=== PATIENT | male | born 1935 | race African-American/Black ===

== ENCOUNTER 2018-11-05 10:54 | Emergency (ER) | payer OTHER ==
[~2018-11-05] VITALS: Ht 170.2 cm; Wt 58.5 kg
[2018-11-05 12:04] LABS: Urine Bacteria NONE SEEN /hpf (None Seen); Urine Blood 2+ /uL (Negative); Urine Specific Gravity 1.008 (1.001-1.035); Urine WBC 1 /hpf (0 - 3)
[2018-11-05 12:19] LABS: Basophils # (auto) 0 uL; Basophils % (auto) 0.4 % (0.0-2.0); Eosinophils # (auto) 0 uL; Eosinophils % (auto) 0.1 % (0.0-7.0); Hematocrit 45.8 % (41.0-53.0); Hemoglobin 15.4 g/dL (13.5-17.5); Lymphocytes # (auto) 0.7 uL; Lymphocytes % (auto) 10.8 % (10.0-50.0); Mean Corpuscular Hemoglobin 29.6 pg (28.0-32.0); Mean Corpuscular Hgb Conc. 33.5 g/dL (32.0-36.0); Mean Corpuscular Volume 88.4 fL (80.0-100.0); Monocytes # (auto) 0.4 uL; Monocytes % (auto) 5.8 % (0.0-12.0); Neutrophils # (auto) 5.6 uL; Neutrophils % (auto) 82.9 % (37.0-80.0); Nucleated Red Blood Cells % 0.9 %; Platelet Count (auto) 397 10^3/uL (140-450); Red Blood Cells 5.19 10^6/uL (4.5-5.90); Red Cell Distribution Width 14.2 % (11.8-14.3); White Blood Cell 6.7 10^3/uL (4.4-10.8)
[2018-11-05 12:45] LABS: Albumin 3.8 g/dL (3.4-5.0); Calcium 9.1 mg/dL (8.5-10.1)
[2018-11-05 12:46] LABS: INR 0.99 (0.9-1.15); Prothrombin Time 10.7 sec (9.06-12.60)
[2018-11-05 12:50] LABS: BUN/Creatinine Ratio 11.5; Bilirubin, Total 0.8 mg/dL (0.2-1.0)
[2018-11-05 15:22] VITALS: BP 147/76
== END 2018-11-05 15:22 | disposition home or self-care (01) ==
LOC: ER 11:01
DX: R33.9 Retention of urine, unspecified (principal); I10 Essential (primary) hypertension
CPT/HCPCS: 36415; 51702; 80053; 81001; 85025; 85610

== ENCOUNTER → 2019-08-14 | Emergency (ER) | payer OTHER ==
[~2019-08-14] VITALS: Ht 177.8 cm; Wt 59.9 kg
[~2019-08-14] MED LIST: ASPI81CH43 PO; ATOR10TA PO; HCTZ25T PO; NOREPINEPHRINE 8 MG/250ML KIT 250 ML IV SCH; TAM04C PO; cloNIDine HCL 0.1 MG TAB PO ONE
[2019-08-14 07:13] LABS: Urine Bacteria MANY /hpf (None Seen); Urine Blood 2+ /uL (Negative); Urine Specific Gravity 1.012 (1.001-1.035); Urine WBC 70 /hpf (0 - 3); Urine WBC Clumps PRESENT /hpf (None Seen)
[2019-08-14 08:43] VITALS: BP 167/101
== END | disposition home or self-care (01) ==
LOC: EDBD 02:08 → EDUNIT# 02:08 → ER 02:20
DX: R33.9 Retention of urine, unspecified (principal); N39.0 Urinary tract infection, site not specified; I10 Essential (primary) hypertension; E11.9 Type 2 diabetes mellitus without complications; E78.5 Hyperlipidemia, unspecified; F17.210 Nicotine dependence, cigarettes, uncomplicated; Z79.82 Long term (current) use of aspirin; Z79.899 Other long term (current) drug therapy
CPT/HCPCS: 51702; 81001; 93005

== ENCOUNTER 2019-10-29 10:45 | Inpatient (IN) | payer OTHER ==
[~2019-10-29] VITALS: Ht 170.2 cm; Wt 56.0 kg
[~2019-10-29 10:45] MED LIST changes: -NOREPINEPHRINE 8 MG/250ML KIT 250 ML IV SCH; -cloNIDine HCL 0.1 MG TAB PO ONE
[2019-10-29 11:04] LABS: Basophils # (auto) 0 10 ^3/uL (0-0.2); Basophils % (auto) 0.2 % (0.0-2.0); Eosinophils # (auto) 0 10 ^3/uL (0-0.8); Eosinophils % (auto) 0.1 % (0.0-7.0); Hematocrit 42.1 % (41.0-53.0); Hemoglobin 13.8 g/dL (13.5-17.5); Lymphocytes % (auto) 7.5 % (10.0-50.0); Mean Corpuscular Hemoglobin 28.8 pg (28.0-32.0); Mean Corpuscular Hgb Conc. 32.8 g/dL (32.0-36.0); Mean Corpuscular Volume 87.7 fL (80.0-100.0); Monocytes % (auto) 7.4 % (0.0-12.0); Neutrophils # (auto) 10.9 10 ^3/uL (1.6-8.6); Neutrophils % (auto) 84.8 % (37.0-80.0); Nucleated Red Blood Cells % 0.1 %; Platelet Count (auto) 188 10^3/uL (140-450); Red Cell Distribution Width 15.6 % (11.8-14.3); White Blood Cell 12.9 10^3/uL (4.4-10.8)
[2019-10-29 11:21] LABS: Albumin 3.3 g/dL (3.4-5.0); Calcium 8.6 mg/dL (8.5-10.1); Potassium 3.4 mmol/L (3.5-5.1)
[2019-10-29 11:24] LABS: BUN/Creatinine Ratio 15.4; Total Protein 7.8 g/dL (6.4-8.2)
[2019-10-29 11:59] LABS: Urine Bacteria MOD /hpf (None Seen); Urine Blood 2+ /uL (Negative); Urine Specific Gravity 1.014 (1.001-1.035); Urine WBC 423 /hpf (0 - 3); Urine WBC Clumps PRESENT /hpf (None Seen)
[2019-10-29] MEDS ORDERED: MORPHINE SULF INJ 2 MG/ML SYRINGE 1ML IV PRN ×2 (13:15)
[2019-10-29] MEDS ORDERED: NITROGLYCERIN 0.4 MG SL TAB SL PRN (13:15)
[2019-10-29] MEDS ORDERED: HYDROcodone-ACET 5/325MG TAB PO PRN (13:15)
[2019-10-29] MEDS ORDERED: ACETAMINOPHEN 500 MG TAB PO PRN (13:15)
[2019-10-29] MEDS ORDERED: ONDANSETRON HCL 4 MG/2 ML VIAL IV PRN (13:15)
[2019-10-29] MEDS ORDERED: cefTRIAXone 1GM/50ML D5W 50 ML IV ONE (13:15)
[2019-10-29] MEDS: SODIUM CHLORIDE 0.9% 1,000 ML IV SCH ×2 (13:30→23:06)
[2019-10-29 18:14] VITALS: BP 172/84
[2019-10-29 18:37] VITALS: BP 172/84
[2019-10-29] MEDS ORDERED: LISI10TA6 PO (19:57)
[2019-10-29] MEDS: DOCUSATE SOD 100 MG CAP PO SCH (21:47)
[2019-10-30 05:19] VITALS: BP 155/85
[2019-10-30 06:14] LABS: Basophils # (auto) 0 10 ^3/uL (0-0.2); Basophils % (auto) 0.3 % (0.0-2.0); Eosinophils # (auto) 0.1 10 ^3/uL (0-0.8); Eosinophils % (auto) 1.2 % (0.0-7.0); Hematocrit 38.1 % (41.0-53.0); Hemoglobin 12.8 g/dL (13.5-17.5); Lymphocytes # (auto) 1.4 10 ^3/uL (0.4-5.4); Lymphocytes % (auto) 11.4 % (10.0-50.0); Mean Corpuscular Hemoglobin 29.2 pg (28.0-32.0); Mean Corpuscular Hgb Conc. 33.5 g/dL (32.0-36.0); Mean Corpuscular Volume 87.2 fL (80.0-100.0); Monocytes # (auto) 1.1 10 ^3/uL (0-1.3); Neutrophils # (auto) 9.6 10 ^3/uL (1.6-8.6); Neutrophils % (auto) 78.1 % (37.0-80.0); Nucleated Red Blood Cells % 0.1 %; Platelet Count (auto) 171 10^3/uL (140-450); Red Blood Cells 4.37 10^6/uL (4.5-5.90); Red Cell Distribution Width 15.2 % (11.8-14.3); White Blood Cell 12.2 10^3/uL (4.4-10.8)
[2019-10-30 06:35] LABS: Potassium 3.7 mmol/L (3.5-5.1)
[2019-10-30 06:45] LABS: BUN/Creatinine Ratio 15.7; Calcium 8.3 mg/dL (8.5-10.1)
[2019-10-30 08:00] VITALS: BP 141/76
[2019-10-30 09:00] VITALS: BP 141/76
[2019-10-30] MEDS ORDERED: cefTRIAXone 1GM/50ML D5W 50 ML IV SCH (09:00)
[2019-10-30] MEDS: cefTRIAXone 1GM/50ML D5W 50 ML IV SCH (09:46)
[2019-10-30] MEDS: ASPirin 81 mg TAB PO SCH (09:47)
[2019-10-30] MEDS: FAMOTIDINE 20 MG TAB PO SCH (09:47)
[2019-10-30] MEDS: DOCUSATE SOD 100 MG CAP PO SCH ×2 (09:48→21:37)
[2019-10-30] MEDS: amLODIPine BESYLATE 5 MG TAB PO SCH (09:48)
[2019-10-30] MEDS: HCTZ 25 MG TAB PO SCH (09:49)
[2019-10-30] MEDS: SODIUM CHLORIDE 0.9% 1,000 ML IV SCH (09:58)
[2019-10-30 13:00] VITALS: BP 130/67
[2019-10-30] MEDS ORDERED: POTASSIUM CHL 20 Meq TABLET PO ONE (13:15)
[2019-10-30 16:41] VITALS: BP 151/78
[2019-10-30 22:27] VITALS: BP 147/70
[2019-10-31 05:41] VITALS: BP 144/80
[2019-10-31 05:44] LABS: Basophils # (auto) 0 10 ^3/uL (0-0.2); Basophils % (auto) 0.4 % (0.0-2.0); Eosinophils # (auto) 0.2 10 ^3/uL (0-0.8); Eosinophils % (auto) 2.6 % (0.0-7.0); Hematocrit 41.2 % (41.0-53.0); Hemoglobin 14.3 g/dL (13.5-17.5); Lymphocytes # (auto) 1.5 10 ^3/uL (0.4-5.4); Lymphocytes % (auto) 17.1 % (10.0-50.0); Mean Corpuscular Hemoglobin 30.1 pg (28.0-32.0); Mean Corpuscular Hgb Conc. 34.6 g/dL (32.0-36.0); Monocytes # (auto) 0.9 10 ^3/uL (0-1.3); Monocytes % (auto) 11.1 % (0.0-12.0); Neutrophils # (auto) 5.8 10 ^3/uL (1.6-8.6); Neutrophils % (auto) 68.8 % (37.0-80.0); Nucleated Red Blood Cells % 0.1 %; Platelet Count (auto) 198 10^3/uL (140-450); Red Blood Cells 4.74 10^6/uL (4.5-5.90); Red Cell Distribution Width 14.9 % (11.8-14.3); White Blood Cell 8.5 10^3/uL (4.4-10.8)
[2019-10-31 05:57] LABS: Calcium 8.6 mg/dL (8.5-10.1); Potassium 3.2 mmol/L (3.5-5.1)
[2019-10-31 05:58] LABS: INR 1.14 (0.9-1.15)
[2019-10-31 05:59] LABS: BUN/Creatinine Ratio 13.8
[2019-10-31 08:00] VITALS: BP 177/86
[2019-10-31 09:00] VITALS: BP 177/86
[2019-10-31] MEDS: cefTRIAXone 1GM/50ML D5W 50 ML IV SCH (09:48)
[2019-10-31] MEDS: DOCUSATE SOD 100 MG CAP PO SCH ×2 (09:48→21:36)
[2019-10-31] MEDS: POTASSIUM CHL 20 Meq TABLET PO SCH (09:49)
[2019-10-31] MEDS: FAMOTIDINE 20 MG TAB PO SCH (09:50)
[2019-10-31] MEDS: HCTZ 25 MG TAB PO SCH (09:50)
[2019-10-31] MEDS: amLODIPine BESYLATE 5 MG TAB PO SCH (09:50)
[2019-10-31] MEDS ORDERED: POTASSIUM CHL 20 Meq TABLET PO SCH (10:00)
[2019-10-31] MEDS ORDERED: LISINOPRIL 10 MG TAB PO ONE (12:30)
[2019-10-31 13:00] VITALS: BP 186/79
[2019-10-31] MEDS: LABETALOL HCL 5 MG/ML 4ML SYRINGE IV PRN ×2 (16:53→21:36)
[2019-10-31 17:00] VITALS: BP 188/93
[2019-10-31 22:24] VITALS: BP 164/92
[2019-11-01] MEDS ORDERED: cloNIDine HCL 0.1 MG TAB PO ONE (00:45)
[2019-11-01 05:44] VITALS: BP 140/75
[2019-11-01 07:13] LABS: BUN/Creatinine Ratio 13.2; Calcium 8.7 mg/dL (8.5-10.1); Potassium 3.8 mmol/L (3.5-5.1)
[2019-11-01 08:00] VITALS: BP 100/69
[2019-11-01 09:00] VITALS: BP 100/69
[2019-11-01] MEDS: HCTZ 25 MG TAB PO SCH (10:00)
[2019-11-01] MEDS: FAMOTIDINE 20 MG TAB PO SCH (10:00)
[2019-11-01] MEDS: DOCUSATE SOD 100 MG CAP PO SCH ×2 (10:00→22:40)
[2019-11-01] MEDS ORDERED: LISINOPRIL 10 MG TAB PO SCH (10:00)
[2019-11-01] MEDS: amLODIPine BESYLATE 5 MG TAB PO SCH (10:00)
[2019-11-01] MEDS: LISINOPRIL 10 MG TAB PO SCH (10:00)
[2019-11-01] MEDS: POTASSIUM CHL 20 Meq TABLET PO SCH (10:00)
[2019-11-01] MEDS ORDERED: levoFLOXacin 500MG 100 ML IV SCH (10:00)
[2019-11-01] MEDS ORDERED: CIPROFLOXACIN 400MG/200ML 200 ML IV ONE ×2 (11:12→11:15)
[2019-11-01] MEDS ORDERED: SUCCINYLCHOLINE CHLORIDE 20 MG/ML 10ML VIAL IV ONE (11:20)
[2019-11-01] MEDS ORDERED: LIDOCAINE 1% (LOCAL ANESTH.) PF 5ml SDV ONE (11:20)
[2019-11-01] MEDS ORDERED: MIDAZOLAM HCL 1MG/1ML-2 ML VIAL ONE (11:37)
[2019-11-01] MEDS ORDERED: ROCURONIUM 10MG/ML 10ML VIAL IV ONE (11:40)
[2019-11-01] MEDS ORDERED: ETOMIDATE (2MG/ML) 20ML VIAL IV ONE (11:41)
[2019-11-01] MEDS ORDERED: fentaNYL CITRATE 100 MCG/2 ML VL ONE (11:50)
[2019-11-01] MEDS ORDERED: STERILE WATER 10 ML ONE (12:01)
[2019-11-01] MEDS ORDERED: ePHEDrine SULFATE 50 MG/ML AMP ONE (12:01)
[2019-11-01] MEDS ORDERED: NALOXONE HCL 0.4 MG/ML VIAL IV PRN (12:15)
[2019-11-01] MEDS ORDERED: ONDANSETRON HCL 4 MG/2 ML VIAL IV PRN (12:15)
[2019-11-01] MEDS ORDERED: HYDROmorphone HCL 2 MG/ML VL IV PRN ×2 (12:15)
[2019-11-01] MEDS ORDERED: GLYCOPYRROLATE 0.2 MG/ML 1ML VIAL ONE (12:50)
[2019-11-01] MEDS ORDERED: NEOSTIGMINE 1 MG/ML INJ (10mg/10ML VIAL) ONE (12:50)
[2019-11-01 13:00] VITALS: BP 145/75
[2019-11-01] MEDS: BELLADONNA ALKAL/OPIUM (16.2/30MG) RECT SUPP PR SCH ×2 (15:34→15:42)
[2019-11-01 17:30] VITALS: BP 157/73
[2019-11-01 21:36] VITALS: BP 117/69
[2019-11-02 04:55] VITALS: BP 134/59
[2019-11-02 08:00] VITALS: BP 145/75
[2019-11-02 09:00] VITALS: BP_SYST 138; BP_SYST 147; BP_DIAS 70; BP_DIAS 75
[2019-11-02] MEDS ORDERED: BELLADONNA ALKAL/OPIUM (16.2/30MG) RECT SUPP PR SCH (10:00)
[2019-11-02] MEDS: DOCUSATE SOD 100 MG CAP PO SCH ×2 (10:00→22:00)
[2019-11-02] MEDS: FAMOTIDINE 20 MG TAB PO SCH (11:15)
[2019-11-02] MEDS: levoFLOXacin 500 MG TAB PO SCH (11:15)
[2019-11-02] MEDS: BELLADONNA ALKAL/OPIUM (16.2/30MG) RECT SUPP PR SCH (11:15)
[2019-11-02] MEDS: amLODIPine BESYLATE 5 MG TAB PO SCH (11:16)
[2019-11-02] MEDS: HCTZ 25 MG TAB PO SCH (11:16)
[2019-11-02] MEDS: POTASSIUM CHL 20 Meq TABLET PO SCH (11:16)
[2019-11-02] MEDS: LISINOPRIL 10 MG TAB PO SCH (11:17)
[2019-11-02 13:00] VITALS: BP 158/74
[2019-11-02 17:00] VITALS: BP 131/66
[2019-11-02 21:00] VITALS: BP 133/71
[2019-11-03 05:00] VITALS: BP 152/85
[2019-11-03] MEDS: DOCUSATE SOD 100 MG CAP PO SCH ×2 (08:50→22:00)
[2019-11-03] MEDS: HCTZ 25 MG TAB PO SCH (08:51)
[2019-11-03] MEDS: POTASSIUM CHL 20 Meq TABLET PO SCH (08:51)
[2019-11-03] MEDS: FAMOTIDINE 20 MG TAB PO SCH (08:52)
[2019-11-03] MEDS: levoFLOXacin 500 MG TAB PO SCH (08:52)
[2019-11-03] MEDS: LISINOPRIL 10 MG TAB PO SCH (08:53)
[2019-11-03] MEDS: amLODIPine BESYLATE 5 MG TAB PO SCH (08:53)
[2019-11-03] MEDS: BELLADONNA ALKAL/OPIUM (16.2/30MG) RECT SUPP PR SCH ×2 (08:53→09:03)
[2019-11-03 09:00] VITALS: BP 164/74
[2019-11-03] MEDS: ASPirin 81 mg TAB PO SCH (10:35)
[2019-11-03 13:00] VITALS: BP 171/95
[2019-11-03] MEDS ORDERED: LISINOPRIL 20 MG TAB PO ONE (14:00)
[2019-11-03 16:36] VITALS: BP 158/80
[2019-11-03 21:00] VITALS: BP 142/70
[2019-11-04 05:00] VITALS: BP 154/73
[2019-11-04 06:26] LABS: BUN/Creatinine Ratio 13.5; Calcium 8.4 mg/dL (8.5-10.1); Potassium 3.7 mmol/L (3.5-5.1)
[2019-11-04] MEDS: levoFLOXacin 500 MG TAB PO SCH (07:43)
[2019-11-04] MEDS: POTASSIUM CHL 20 Meq TABLET PO SCH (07:43)
[2019-11-04] MEDS: FAMOTIDINE 20 MG TAB PO SCH (07:45)
[2019-11-04] MEDS: ASPirin 81 mg TAB PO SCH (07:45)
[2019-11-04] MEDS: DOCUSATE SOD 100 MG CAP PO SCH (07:45)
[2019-11-04] MEDS: amLODIPine BESYLATE 5 MG TAB PO SCH (07:45)
[2019-11-04] MEDS: HCTZ 25 MG TAB PO SCH (07:46)
[2019-11-04] MEDS: BELLADONNA ALKAL/OPIUM (16.2/30MG) RECT SUPP PR SCH (07:46)
[2019-11-04 08:37] VITALS: BP 172/73
[2019-11-04] MEDS ORDERED: LISINOPRIL 10 MG TAB PO SCH (10:00)
[2019-11-04] MEDS ORDERED: LEVO-28 PO (10:08)
[2019-11-04] MEDS ORDERED: AMLO10TA13 PO (10:08)
[2019-11-04] MEDS ORDERED: LISI40TA PO (10:08)
[2019-11-04] MEDS ORDERED: POTA-220 PO (10:09)
== END 2019-11-04 12:13 | disposition home or self-care (01) | DRG 666 ==
LOC: ER 10:45 → EDBD 10:45 → TELE 10:46 → TELE-WESTW 17:11
PROVIDERS: ADMIT Nurse Practitioner Acute Care; ATTEND Internal Medicine
PROC: 0VT08ZZ Resection of Prostate, Via Natural or Artificial Opening Endoscopic (ICD-10-PCS; principal; 2019-10-29)
DX: T83.518A Infection and inflammatory reaction due to other urinary catheter, initial encounter (principal); N30.01 Acute cystitis with hematuria; R64 Cachexia; E44.1 Mild protein-calorie malnutrition; Z68.1 Body mass index [BMI] 19.9 or less, adult; I50.32 Chronic diastolic (congestive) heart failure; R65.10 Systemic inflammatory response syndrome (SIRS) of non-infectious origin without acute organ dysfunction; N40.1 Benign prostatic hyperplasia with lower urinary tract symptoms; J44.9 Chronic obstructive pulmonary disease, unspecified; I11.0 Hypertensive heart disease with heart failure; E78.5 Hyperlipidemia, unspecified; Z91.19 Patient's noncompliance with other medical treatment and regimen; E11.65 Type 2 diabetes mellitus with hyperglycemia; N43.3 Hydrocele, unspecified; B96.5 Pseudomonas (aeruginosa) (mallei) (pseudomallei) as the cause of diseases classified elsewhere; E87.6 Hypokalemia; F17.210 Nicotine dependence, cigarettes, uncomplicated; I71.9 Aortic aneurysm of unspecified site, without rupture; N45.1 Epididymitis; N50.89 Other specified disorders of the male genital organs; R33.8 Other retention of urine; Z79.899 Other long term (current) drug therapy; Z90.79 Acquired absence of other genital organ(s); Z79.82 Long term (current) use of aspirin
CPT/HCPCS: 36415; 71045; 76870; 80048; 80053; 81001; 83735; 85025; 85610; 85730; 86850; 86900; 86901; 87081; 87086; 87088; 87186; 93005; 96365; G0378; J0330; J0696; J2250; J3490